=== PATIENT | female | born 1955 | race Caucasian/White ===

== ENCOUNTER 2016-11-13 18:09 | Emergency (ER) | payer OTHER ==
[2016-11-13 18:18] VITALS: BP 150/90; PULSE 85; TEMP 98.1; BMI 30.2
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
[2016-11-13] MEDS ORDERED: AMOXICILLIN 500 MG CAPSULE (FP) PO ONE (19:22)
[2016-11-13] MEDS ORDERED: AMOXICILLIN 500 MG CAPSULE (FP) ONE (19:27)
== END 2016-11-13 19:34 | disposition home or self-care (01) ==
LOC: JERFT 18:09
PROC: 0CQ0XZZ Repair Upper Lip, External Approach (ICD-10-PCS; principal; 2016-11-13)
DX: S01.511A Laceration without foreign body of lip, initial encounter (principal); W50.0XXA Accidental hit or strike by another person, initial encounter; Y93.89 Activity, other specified; Y92.038 Other place in apartment as the place of occurrence of the external cause
CPT/HCPCS: 99281-25